=== PATIENT | female | born 1950 | race Caucasian/White ===

== ENCOUNTER 2022-03-11 18:05 | Emergency (ER) | payer MEDICARE, BC, SELFPAY ==
[2022-03-11 18:12] VITALS: BP 150/92; PULSE 66; RESP 20; TEMP 37.6; O2SAT 99; BMI 25.0
--- NOTE | 2022-03-11 19:30 | CRLHL7_ITS ---
For Patients: As a result of the Century Cures Act, medical imaging exams and procedure reports are released immediately into your electronic medical record. You may view this report before your referring provider. If you have questions, please contact your health care provider. INDICATION: Headache. TECHNIQUE: CT head without contrast. COMPARISON: None. FINDINGS: CSF spaces: Within normal limits for age. Brain parenchyma and extra-axial spaces: The elizondo-white differentiation is normal. No sign of mass, hemorrhage, or midline shift. No extra-axial fluid collection. Skull base and calvarium: The visualized paranasal sinuses and mastoid air cells demonstrate no acute or significant findings. Bilateral cataract surgery. The visualized orbits are grossly unremarkable. No skull fractures. IMPRESSION: No acute intracranial abnormality. Please note that all CT scans at this facility use dose modulation, iterative reconstruction, and/or weight-based dosing when appropriate to reduce radiation dose to as low as reasonably achievable. Dictated by Lewis Ross MD @ 03/11/2022 7:59:05 PM (Electronically Signed)
[2022-03-11] MEDS: ONDANSETRON 2 MG/ML inj 4 MG IVP (19:41)
[2022-03-11] MEDS: ACETAMINOPHEN 500 MG TABLET 1000 MG PO (19:42)
[2022-03-11] MEDS: diphenhydrAMINE 50 MG/ML inj 25 MG IVP (19:43)
[2022-03-11 19:53] LABS: Basophils Absolute Auto 0.02 K/uL (0.00-0.30); Basophils Percent Auto 0.3 % (0.0-3.0); Eosinophils Absolute Auto 0.16 K/uL (0.00-0.50); Eosinophils Percent Auto 2.1 % (0.0-7.0); Hematocrit 40.8 % (33.0-51.0); Hemoglobin* 13.6 gm/dL (12.0-16.0); Immature Granulocytes Abs Auto 0.01 K/uL (0.00-0.30); Immature Granulocytes Pct Auto 0.1 %; Lymphocytes Absolute Auto 1.51 K/uL (0.90-2.90); Mean Corpuscular HGB Conc 33 gm/dL (32-36); Mean Corpuscular Hemoglobin 32 pg (26-34); Mean Corpuscular Volume 96 fL (80-100); Monocytes Percent Auto 6.7 % (0.0-11.0); Neutrophils Absolute Auto 5.35 K/uL (1.7-7.0); Neutrophils Percent Auto 70.8 % (42.0-72.0); Platelet Count* 228 K/uL (140-440); RDW Coefficient of Variation % 11.8 % (11.5-15.5); Red Blood Count 4.24 m/uL (4.00-5.20); White Blood Count* 7.56 K/uL (4.50-11.00)
[2022-03-11] MEDS: 0.9 % SODIUM CHLORIDE 500 ML 500 ML IV (19:57)
[2022-03-11 20:00] LABS: Slide Review Reflex No
--- NOTE | 2022-03-11 20:05 | ED.GENADULT ---
HPI - General Adult General Date Seen: 03/11/22 Chief complaint: Headache/Migraine Stated complaint: Spiking blood pressure Time Seen by Provider: 03/11/22 18:30 Source: patient History of Present Illness HPI narrative: Patient is a 71-year-old woman who comes in because of concerns about her blood pressure spiking today. She says she woke up this morning and developed a moderate frontal headache, immediately suspected that her blood pressure must be elevated, checked it and it was 180/110. She says that she is supposed check her blood pressure on a regular basis but does not, so she does not actually know what it usually runs in the mornings, but knows that her symptoms today are due to her elevated blood pressure. She says that she had an ortho appointment for a cyst on her finger, which she went to early because she did not want to miss it because of her blood pressure. When she went to the appointment her blood pressure was somewhat elevated as well although not as high as it has at home. She has continued to have a headache throughout the day associated with nausea but no vomiting. Blood pressures have been variable. She has had some tingling in her hands but she attributes that to her carpal tunnel. She has not had any focal neurologic deficits. She has some pain in her left lateral neck but says that this is more chronic. She became concerned about possible stroke or heart attack related to her high blood pressure which is what led to her coming in. She says she knows that her blood pressure is supposed to be under 130/80. She does take 2 medications for her blood pressure which she believes is typically well controlled although again she does not check her blood pressure at home. She further tells me that her dad was cared for here a number of years ago, apparently he had SIADH and she said he was sent home with seizures, so she is not happy about being here, but she did not want to drive somewhere farther away. She does not smoke. Drinks a couple of glasses of wine a day. Drove herself here as her is home taking care of their grandkids. Related Data Home Medications Medication Instructions Recorded Confirmed fluticasone propionate 50 2 spray intranasal QDAY 10/18/21 10/18/21 mcg/actuation nasal spray,suspension hydrochlorothiazide 25 mg tablet 25 mg PO QDAY 10/18/21 10/18/21 levothyroxine 50 mcg capsule 50 mcg PO QDAY 10/18/21 10/18/21 sertraline 50 mg tablet 50 mg PO QDAY 10/18/21 10/18/21 atorvastatin 10 mg tablet 10 mg PO .Bedtime 10/19/21 10/19/21 calcium citrate 250 mg PO QDAY 10/19/21 10/19/21 cholecalciferol (vitamin D3) 25 25 mcg PO QDAY 10/19/21 10/19/21 mcg (1,000 unit) capsule (Vitamin D3) lisinopril 5 mg tablet 5 mg PO DAILY 10/19/21 10/19/21 metoprolol tartrate 25 mg tablet 25 mg PO QDAY 10/19/21 10/19/21 Allergies Allergy/AdvReac Type Severity Reaction Status Date / Time doxycycline AdvReac Heartburn Verified 10/18/21 09:47 Review of Systems Status of ROS: Reports: 10 or more systems reviewed and unremarkable except as noted in History and below [facility] Medical History De Quervain's syndrome (tenosynovitis) Depression Surgical History De Quervain's tenosynovitis, left (02/17/20) Family History Sister Cancer Other Coronary artery disease Dementia Social History Smoking Status: Former smoker What tobacco products do you use: cigarettes Smoking quit date/years: >15 years ago Do you use any of these nicotine containing products: None Second hand tobacco smoke exposure: No How often do you have a drink containing alcohol: 4 or more times a week How many standard drinks containing alcohol do you have on a typical day: 1 or 2 How often do you have six or more drinks on one occasion: Never AUDIT-C Alcohol total score: 4 Non-prescribed substance use: denies use service: No Exam Narrative: Exam Narrative: Vital signs as noted above. In general, an alert, well-appearing patient. Head: Normocephalic, atraumatic. Eyes: Pupils are equal reactive. Extraocular movements are full. Conjunctivae are normal. No nystagmus. ENT: Mucous membranes are moist. Throat is normal. Neck: Supple without lymphadenopathy. No bruits. Heart: Regular rate and rhythm. No murmur or rub. Lungs: Clear bilaterally. No increased work of breathing, crackles or wheezes. Abdomen: Soft and nontender. No organomegaly. Extremities: Well perfused. No edema. No calf tenderness. Pulses intact. Neurologic: Patient is alert and oriented to person and place. Speech is fluent. Face is symmetric. Moves all extremities equally. Cerebellar function intact by finger-nose testing. Affect: Normal. Skin: Warm and dry. Well perfused. Const: Vital Signs, click to edit/add: Vital Signs - 24 hr 03/11/22 18:12 Temperature 99.6 F Pulse Rate [Pulse Oximeter] 66 Respiratory Rate 20 Blood Pressure [Le ft Upper Arm] 150/92 H Pulse Oximetry 99 Oxygen Delivery Me thod Room Air Documenting provider has reviewed patient's vital signs: yes Course Course Hospital Course: Will place an IV. She tries to stay way from ibuprofen and related products, so I do not think Toradol is a good option but she would like to take something for her headache. She drove here and would like to be able to drive home ideally. Therefore, I am going to try giving her some Tylenol, along with Benadryl and Zofran, will see if we can get her head feeling a little bit better. What I have suggested is that we evaluate her for her headache, and make sure that we do not see any acute problems they are in terms of intracranial hemorrhage or stroke etcetera. I do not think this is related to intracranial infection, she does not describe any meningeal signs or fever. Her neurologic exam is normal, she is mentating well, and looks comfortable. I am less concerned about acutely managing her blood pressure tonight, and I have tried to explain my rationale for this to her. She does not have any confusion or focal findings, I do not think this represents PRESS or encephalopathy. She is not describing a thunderclap type headache and I do not think she will need additional evaluation for subarachnoid hemorrhage. She does have a history of migraine headache, and while this is a diagnosis of exclusion for her at this age, it is possible that this represents migraine. Headache is not temporal, but CRP and sed rate are pending. She is feeling improved after medications, particularly in terms of the nausea which is completely gone. Headache she says is partially gone but she still having some ?zaps of pain she says. Her is now here with her, and she would like to try something stronger for pain and then have him drive her home. Head CT by my review is negative, final radiology report is likewise normal. CRP has returned normal, I suspect sed rate likely normal as well as that is still processing. Her blood pressure here has been somewhat variable ranging from 140s and 150s to 180s systolic. I have discussed with her that my preference would be to just have her check her blood pressures over the next few days and see where they are running on a normal day, and then have her talk with Dr. Tobin about possible medication changes. It may be that she needs to have an adjustment in her medication, but I am not sure that I want to base these changes just on today. Patient is feeling considerably better after 4 mg of morphine. Headache is entirely resolved and she would like to go home. She is comfortable with plan as outlined above. If at any point headache returns, is severe, or associated with new symptoms such as confusion, visual changes, focal neurologic deficits, etcetera, return to the emergency department immediately for evaluation. Vital Signs Vital signs: Initial Vital Signs Temperature 99.6 F 03/11/22 18:12 Temperature Source Temporal Artery Scan 03/11/22 18:12 Pulse Rate 66 03/11/22 18:12 Pulse Rhythm 03/11/22 18:12 Respiratory Rate 20 03/11/22 18:12 Blood Pressure 150/92 H 03/11/22 18:12 Blood Pressure Mean 111 03/11/22 18:12 Blood Pressure Position Supine 03/11/22 18:12 Pulse Oximetry 99 03/11/22 18:12 Oxygen Delivery Method 03/11/22 18:12 Vital Signs Temperature 99.6 F 03/11/22 18:12 Pulse Rate 66 03/11/22 18:12 Respiratory Rate 20 03/11/22 18:12 Blood Pressure 150/92 H 03/11/22 18:12 Pulse Oximetry 99 03/11/22 18:12 Oxygen Delivery Method 03/11/22 18:12 Temperature 99.6 F 03/11/22 18:12 Pulse Rate 66 03/11/22 18:12 Respiratory Rate 20 03/11/22 18:12 Blood Pressure 150/92 H 03/11/22 18:12 Pulse Oximetry 99 03/11/22 18:12 Oxygen Delivery Method 03/11/22 18:12 Medical Decision Making Lab Data Labs: Lab Results 03/11/22 03/11/22 03/11/22 Range/Units 19:47 19:47 19:47 WBC 7.56 (4.50-11.00) K/uL RBC 4.24 (4.00-5.20) m/uL Hgb 13.6 (12.0-16.0) gm/dL Hct 40.8 (33.0-51.0) % MCV 96 (80-100) fL MCH 32 (26-34) pg MCHC 33 (32-36) gm/dL RDW Coeff of Keke 11.8 (11.5-15.5) % Plt Count 228 (140-440) K/uL Neut % (Auto) 70.8 (42.0-72.0) % Lymph % (Auto) 20.0 (20-44) % [place] % (Auto) 6.7 (0.0-11.0) % Eos % (Auto) 2.1 (0.0-7.0) % Baso % (Auto) 0.3 (0.0-3.0) % Neut # (Auto) 5.35 (1.7-7.0) K/uL Lymph # (Auto) 1.51 (0.90-2.90) K/uL [place] # (Auto) 0.50 (0.00-0.90) K/UL Eos # (Auto) 0.16 (0.00-0.50) K/uL Baso # (Auto) 0.02 (0.00-0.30) K/uL ESR 19 (2-20) mm/hr Sodium 137 (135-149) mmol/L Potassium 3.6 (3.6-5.1) mmol/L Chloride 100 (96-114) mmol/L Carbon Dioxide 30 (20-32) mmol/L BUN 19 (7-30) mg/dL Creatinine 0.6 (0.5-1.5) mg/dL Estimated Creat Clear 47.60 Estimated GFR 95 ml/min Glucose 109 (60-115) mg/dL Calcium 9.1 (8.4-10.6) mg/dL C-Reactive Protein 0.8 (0.5-1.0) mg/dL 03/11/22 Range/Units 19:47 WBC (4.50-11.00) K/uL RBC (4.00-5.20) m/uL Hgb (12.0-16.0) gm/dL Hct (33.0-51.0) % MCV (80-100) fL MCH (26-34) pg MCHC (32-36) gm/dL RDW Coeff of Keke (11.5-15.5) % Plt Count (140-440) K/uL Neut % (Auto) (42.0-72.0) % Lymph % (Auto) (20-44) % [place] % (Auto) (0.0-11.0) % Eos % (Auto) (0.0-7.0) % Baso % (Auto) (0.0-3.0) % Neut # (Auto) (1.7-7.0) K/uL Lymph # (Auto) (0.90-2.90) K/uL [place] # (Auto) (0.00-0.90) K/UL Eos # (Auto) (0.00-0.50) K/uL Baso # (Auto) (0.00-0.30) K/uL ESR (2-20) mm/hr Sodium (135-149) mmol/L Potassium (3.6-5.1) mmol/L Chloride (96-114) mmol/L Carbon Dioxide (20-32) mmol/L BUN (7-30) mg/dL Creatinine (0.5-1.5) mg/dL Estimated Creat Clear Estimated GFR ml/min Glucose (60-115) mg/dL Calcium (8.4-10.6) mg/dL C-Reactive Protein Cancelled (0.5-1.0) mg/dL Discharge Plan Discharge Clinical Impression: Headache, Elevated blood pressure reading with diagnosis of hypertension Patient Disposition: Home, Self-Care Condition: Improved Instructions: Acute Headache (ED) Additional Instructions: Check blood pressure a couple times a day for the next few days, discuss readings with Dr. Tobin if elevated. If severe headache or other new symptoms, confusion, focal weakness, numbness, changes in speech, vision, etcetera, return immediately to the emergency department. Otherwise, continue current medications and follow up as needed. Prescriptions: No Action fluticasone propionate 50 mcg/actuation spray,suspension 2 spray intranasal QDAY Rx Instructions: administer into each nostril levothyroxine 50 mcg capsule 50 mcg PO QDAY hydrochlorothiazide 25 mg tablet 25 mg PO QDAY sertraline 50 mg tablet 50 mg PO QDAY atorvastatin 10 mg tablet 10 mg PO .Bedtime lisinopril 5 mg tablet 5 mg PO DAILY metoprolol tartrate 25 mg tablet 25 mg PO QDAY cholecalciferol (vitamin D3) [Vitamin D3] 25 mcg (1,000 unit) capsule 25 mcg PO QDAY calcium citrate 250 mg calcium tablet 250 mg PO QDAY Follow Up/Referrals: Mindy Tobin DO [Primary Care Provider] - Stand Alone Forms: [facility] Info Instructions
[2022-03-11 20:09] LABS: Chloride* 100 mmol/L (96-114)
[2022-03-11 20:10] LABS: Potassium* 3.6 mmol/L (3.6-5.1); Sodium* 137 mmol/L (135-149)
[2022-03-11 20:12] LABS: Creatinine* 0.6 mg/dL (0.5-1.5); Estimated Glomerular Filt Rate 95 ml/min
[2022-03-11 20:13] LABS: Blood Urea Nitrogen* 19 mg/dL (7-30); Carbon Dioxide* 30 mmol/L (20-32); Glucose* 109 mg/dL (60-115)
[2022-03-11 20:14] LABS: Calcium* 9.1 mg/dL (8.4-10.6)
[2022-03-11 20:16] LABS: C Reactive Protein* 0.8 mg/dL (0.5-1.0)
[2022-03-11 20:45] LABS: Erythrocyte SedimentationRate* 19 mm/hr (2-20)
[2022-03-11] MEDS: MORPHINE 4 MG/ML INJ IVP (20:49)
== END 2022-03-11 21:30 | disposition home or self-care (01) ==
PROVIDERS: Emergency Provider Emergency Medicine; PCP Family Medicine
DX: R51.9 Headache, unspecified (principal); R03.0 Elevated blood-pressure reading, without diagnosis of hypertension
CPT/HCPCS: 36415; 70450; 80048; 85025; 85651; 86140; 96374; 96375; 99284; A9270; J1200; J2270; J2405; J7120

== ENCOUNTER 2025-01-29 23:23 | Emergency (ER) | payer MEDICARE, BC, SELFPAY ==
--- OUTSIDE RECORDS SUMMARY | 2025-01-29 23:27 | XMS_ITS | Clinical Summary ---
Author Organization [facility] Address [address] [place] [address] Care Team Providers Care Clerical And Office Support Workers Name Role Phone Mindy Tobin DO Primary Care Provider [phone] Allergies Active Allergy Reactions Criticality Noted Date Comments Doxycycline GI Upset 08/28/2019 Severe heartburn Medications calcium carbonate (CALTRATE) 600 mg calcium (1,500 mg) tablet Take 1 Tablet (600 mg) by mouth one time for 1 dose. 1 Tablet 10/08/19 22 Active cholecalciferol (Vitamin D) 1,000 unit capsule Take 1 Capsule (1,000 units) by mouth once daily. 0 10/08/19 22 Active brimonidine 0.33 % topical gelIndications:Ro sacea Apply peasized amount to affect area face 30 g 3 08/11/19 23 Active oxymetazoline 1 % creaIndications:R osacea Apply topically to affected area(s). 30 g 3 07/06/19 25 Active azelaic acid 15 % gelIndications:Ro sacea Apply a thin layer to the affected area(s) of the face twice daily, in the morning and evening 50 g 3 07/18/19 25 Active hydrocortisone 2.5 % ointment Apply topically to affected area(s). 12/19/19 25 Active atorvastatin (LIPITOR) 20 mg tabletIndications :Other hyperlipidemia Take 1 Tablet (20 mg) by mouth at bedtime. 90 Tablet 3 01/05/20 25 Active levothyroxine (SYNTHROID) 50 mcg tabletIndications :Hypothyroidism, unspecified type TAKE 1 TABLET(50 MCG) BY MOUTH BEFORE BREAKFAST 90 Tablet 2 01/16/20 25 Active lisinopriL (PRINIVIL; ZESTRIL) 40 mg tabletIndications :Hypertension, unspecified type Take 1 Tablet (40 mg) by mouth once daily. 90 Tablet 3 01/24/20 25 Active metoprolol succinate (TOPROL XL) 50 mg sustained-release tabletIndications :HTN (hypertension) Take 1 Tablet (50 mg) by mouth once daily. 90 Tablet 3 01/24/20 25 Active hydroCHLOROthiazi de 25 mg tabletIndications :Hypertension, unspecified type Take 1 Tablet (25 mg) by mouth once daily. 90 Tablet 3 01/24/20 25 Active sertraline (ZOLOFT) 50 mg tabletIndications :Anxiety Take 0.5 Tablets (25 mg) by mouth once daily. 1/2 tablet once a day 45 Tablet 3 01/24/20 25 Active atorvastatin (LIPITOR) 20 mg tabletIndications :Other hyperlipidemia Take 1 Tablet (20 mg) by mouth at bedtime. 90 Tablet 3 02/21/20 24 2024 Discontinued(* Availability/F ormulary change/Cost of medication) metoprolol succinate (TOPROL XL) 50 mg sustained-release tabletIndications :HTN (hypertension) Take 1 Tablet (50 mg) by mouth once daily. 90 Tablet 3 02/21/20 24 2024 Discontinued(R eorder (E-cancel not sent)) sertraline (ZOLOFT) 50 mg tabletIndications :Anxiety Take 0.5 Tablets (25 mg) by mouth once daily. 1/2 tablet once a day 45 Tablet 3 02/21/20 24 2024 Discontinued(R eorder (E-cancel not sent)) brimonidine 0.33 % glwpIndications:R osacea Apply peasized amount to affected area of face 30 g 3 06/12/19 25 2024 Discontinued(* Patient states no longer taking) hydroCHLOROthiazi de 25 mg tabletIndications :Hypertension, unspecified type Take 1 Tablet (25 mg) by mouth once daily. 90 Tablet 1 07/20/19 25 2024 Discontinued levothyroxine 50 mcg tabletIndications :Hypothyroidism, unspecified type Take 1 Tablet (50 mcg) by mouth before breakfast. 90 Tablet 1 07/26/19 25 2024 Discontinued cephalexin 500 mg capsule Take 1 Capsule by mouth two times daily. 12/13/19 25 2024 Discontinued(* Med complete/Regim en complete/Level of care change) losartan (COZAAR) 100 mg tabletIndications :HTN (hypertension) Take 1 Tablet (100 mg) by mouth once daily. 60 Tablet 12/24/19 25 2024 Discontinued(* Medication adjustment) hydroCHLOROthiazi de 25 mg tabletIndications :Hypertension, unspecified type TAKE 1 TABLET(25 MG) BY MOUTH DAILY 30 Tablet 01/16/20 25 2024 Discontinued(R eorder (E-cancel not sent)) Active Problems Problem Noted Date Diagnosed Date Digital mucinous cyst of index finger of left thomas nd 04/25/2024 S/P carpal tunnel release 07/08/2022 S/P excision of ganglion cyst 07/08/2022 Right carpal tunnel syndrome 05/20/2022 Digital Mucoid cyst of joint 05/20/2022 Leg pain, right 05/01/2012 Routine general medical exam ination at a health care facility 11/03/2010 Overview (06/03/2014): dexa normal 2008, repeat in 10-12 years Myriam Herzog M.D. 06/03/2014 2:33 PM Postmenopausal bleeding 11/02/2009 Screen for colon cancer 11/27/2008 Overview (11/27/2008): Colonoscopy 11/2008 normal repeat in 10 years Mixed hyperlipidemia 10/27/2008 Unspecified hypothyroidism 10/26/2007 perioral dermatitis 10/24/2006 Unspecified essential hypertension 06/13/2006 Anxiety state, unspecified 06/13/2006 Encounters Date Type Department Care Team Description 01/23/2025 1:55 PM VALVE MECHANIC Office Visit [facility] [address] [place] [address] Mindy Tobin DO Medicare ANNUAL (subsequent) Visit (74 year old medicare); Blood Pressure 01/23/2025 Travel 01/18/2025 Travel 01/15/2025 Refill [facility] [address] [place] [address] [address] Mindy Tobin DO Refill Request (Hydrochlorothiazid e) 01/14/2025 Refill [facility] [address] [place] [address] Mindy Tobin DO Refill Request (Hydrochlorothiazid e, Levothyroxine) 01/03/2025 Refill [facility] [address] [place] [address] Mindy Tobin DO Refill Request (Atorvastatin) 12/23/2024 11:15 AM CDT Office Visit [facility] [address] [place] [address] Mindy Tobin DO Derm Problem (Rosacea-frequent flares-dermatitis on nose); Cramping (Abdominal cramping with gas 2 weeks-better); Medication Management (Atorvasatin-calciu m and vitamin D) 12/23/2024 Refill [facility] [address] [place] [address] Mindy Tobin DO Refill Request (Losartan) 12/23/2024 Travel 12/18/2024 Travel 11/29/2024 Orders Only [facility] Scanner 1 scan: (1-Ord) TAREEN DERMATOLOGY, NASAL DORSUM. LEFT NASAL ALA, SHAVE BX, 11/29/2024 11/06/2024 11:00 AM CDT Ancillary Procedure [facility] [address] [place] [address] 11/05/2024 Travel from Last 3 Months Immunizations Immunization Administration Dates Next Due COVID-19 vaccine (Moderna 100mcg/0.5mL) PF, MDV 06/03/2021 Hepatitis B (Adult) 11/02/1994,05/24/1994,1994 Influenza Virus, Unspecified 12/12/2017 Influenza, High-dose Inactivated 024,12/12/2017,2015,2014 Influenza, High-dose Quadriv alent Inactivated 12/31/2021,12/29/2020 Influenza, IIV3 (Age >=3 years) 01/25/2014 Influenza, Inactivated AIIV4 (Age 65+ Years) Preserv Free 11/26/2019 Influenza, Inactivated IIV3 (Age 65+ Years) Preserv Free 05/13/2019,01/23/2017 Pneumococcal Conj 20-valent (Prevnar 20) 11/21/2022 Pneumococcal Poly,23-Valent (Pneumovax) 01/23/2017 Pneumococcal conj 13-Valent (Prevnar 13) 07/10/2015 Td (Age >=7 Years) 08/09/2004 Tdap 01/25/2014,05/01/2012 Zoster (Shingrix-RZV, recombinant) 07/19/2018,,05/11/2018 Zoster (Zostavax-ZVL, live) 05/07/2012 Family History Medical History Relation Name Comments Heart Disease Father triple bypass Hypertension Father Arthritis Mother auto immune typ e diesase Heart Disease Paternal Aunt Cancer-colon Paternal Grandmother Heart Disease Paternal Uncle Hypertension Sister Anesthesia Malignant Hyperthermia No Family History Anesthesia Problem No Family History Cancer-breast No Family History Cancer-ovarian No Family History Relation Name Status Comments Father Alive Mother Alive Paternal Aunt Paternal Grandmother Paternal Uncle Sister Social History Tobacco Use Types Packs/Day Years Used Date Smoking Tobacco: Former Cigarettes Q uit: 03/06/1977 Passive Smoke Exposure: Never Smokeless Tobacco: Never Tobacco Cessation:Counseling Given: Not Answered Alcohol Use Standard Drinks/Week Comments Yes 7 (1 standard drink = 0.6 oz pur e alcohol) 1 glass of wine a day PHQ-2 Answer Date Recorded PHQ-2 TOTAL SCORE 0 01/23/2025 Social Connections Answer Date Recorded Do you often feel lonely or isolated from those around you? 0 01/23/2025 Alcohol Use Answer Date Recorded How often do you have a drink containing alcohol ? 4 06/13/2022 How many drinks containing a lcohol do you have on a typical day when you are drinking? 0 06/13/2022 How often do you have five or more drinks on one occasion? 0 06/13/2022 Financial Resource Strain Answer Date R ecorded Difficulty of Paying Living Expenses 3 01/23/2025 Difficulty of Paying Living Expenses Not on file 01/23/2025 Food Insecurity Answer Date Recorded Do you worry your food will run out before you are able to buy more? 1 01/23/2025 Transportation Needs Answer Date Record ed Does lack of transportation keep you from medica l appointments? 1 01/23/2025 Does lack of transportation keep you from work, meetings or getting things that you need? 1 01/23/2025 Housing Stability Answer Date Recorded What is your housing situation today? 1 01/23/2025 Utilities Answer Date Recorded Do you have trouble paying f or utilities (for example, heat, electricity, water, phone)? 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 file Not on file Not on file Obstetrics History Para Term AB IAB SAB Ectopic Multiple Livin g Live Births 2 2 2 0 0 0 0 0 0 2 2 Date Outcome GA Total Labor Labor/2nd/3rd Weight Sex Type Anes PTL Clarissa A1 A5 Name Clin Term Vag Living Term Vag Living Last Filed Vital Signs Vital Sign Reading Time Taken Comments Blood Pressure 124/79 01/23/2025 2:03 PM VALVE MECHANIC Pulse 52 01/23/2025 2:03 PM VALVE MECHANIC Temperature 34.7 C (94.5 F) 01/04/2023 10:52 AM CDT Respiratory Rate 16 06/22/2022 7:54 AM CDT Oxygen Saturation 100% 01/23/2025 2:03 PM VALVE MECHANIC Inhaled Oxygen Concentration - - Weight 66.2 kg (146 lb) 01/23/2025 2:03 PM VALVE MECHANIC Height 165.1 cm (5' 5) 01/23/2025 2:03 PM VALVE MECHANIC Body Mass Index 24.3 01/23/2025 2:03 PM VALVE MECHANIC Plan of Treatment Health Maintenance Due Date Last Done Comments Hepatitis C screening for ag e 18-12/06/1968 Tetanus booster 01/26/2024 01/25/2014, 04/07, 08/09/2004 COVID-19 vaccine series ( season) 2024 12/25/2023, 12/03/2021, 06/03/2021, Additional history exists Influenza Vaccine (#1) 2024 , 11/26/2019, 05/13/2019, Additional history exists RSV vaccine for adults or (1 - 1-dose 75+ series) 2024 BMI (ht and wt on same day) for age 18+ 01/23/2026 01/23/2025, 12/23/2024, 09/27/2023, Additional history exists Depression screening for age 12+ 01/23/2026 01/23/2025, 12/23/2024, 02/21/2024, Additional history exists Medicare Wellness for age 65+ 01/24/2026, 09/27/2023, 08/10/2022, Additional history exists Lipids for age 45-75 12/23/2029 12/23/2024, 08/24/2023, 08/03/2022, Additional history exists Colonoscopy through age 75 04/24/203004/24, 04/24/2020, 04/24/2020, Additional history exists Hepatitis B series for 19+ Completed 11/02, 05/24/1994, 04/25/1994 Zoster (shingles) series for age 50+ Completed 07/19/2018, 05/11/2018, 05/11/2018, Additional history exists DEXA/DXA scan for age 65+ Completed 2022, 07/09/2015, 10/28/2008 Pneumococcal series for age 50+ Completed 11/21/2022, 01/23/2017, 07/10/2015 Procedures Procedure Name Priority Date/Time Associated Diagnosis Comments TSH Routine 12/23/2024 12:21 PM CDT Hypothyroidism, unspecified type VITAMIN D 25 (DEFICIENCY) Routine 12/23/2024 12:21 PM CDT Vitamin D deficiency BASIC METABOLIC PANEL Routine 12/23/2024 12:21 PM CDT Hypertension, unspecified type LIPID PANEL W REFLEX MEASURED LDL Routine 12/23/2024 12:21 PM CDT Hypertension, unspecified type SCAN-OPERATIVE/PROC EDURE REPORT 11/29/2024 12:00 AM CDT XR MAMMO BILAT SCREENING Routine 11/06/2024 11:10 AM CDT Visit for screening mammogram XR DXA BONE DENSITY 2 SITES AXIAL Routine 08/11/2022 10:57 AM CDT Unspecified menopausal and perimenopausal disorder COLONOSCOPY SCREENING Routine 04/24/2020 7:22 AM VALVE MECHANIC Screen for colon cancer from Last 3 Months or Most Recently Relevant to Health Maintenance Results * LIPID PANEL W REFLEX MEASURED LDL (12/23/2024 12:21 PM CDT) CHOLESTEROL, TOTAL 167 <200 mg/dL 12/24/2024 3:41 AM CDT [facility] TRIGLYCERIDES 135 <150 mg/dL 12/24/2024 3:41 AM CDT [facility] HDL CHOLESTEROL 55 > OR = 50 mg/dL 12/24/2024 3:41 AM CDT [facility] NON HDL CHOLESTEROL 112 <130 mg/dL (calc) 12/24/2024 3:41 AM [facility] Comment: For patients with diabetes plus 1 major ASCVD risk factor, treating to a non-HDL-C goal of <100 mg/dL (LDL-C of <70 mg/dL) is considered a therapeutic option. CHOL/HDLC RATIO 3.0 <5.0 (calc) 12/24/2024 3:41 AM CDT [facility] LDL-CHOLESTEROL 89 mg/dL (calc) 12/24/2024 3:41 AM [employer] [facility] Comment: Reference range: <100 Desirable range <100 mg/dL for primary prevention; <70 mg/dL for patients with CHD or diabetic patients with > or = 2 CHD risk factors. LDL-C is now calculated using the Flaquita calculation, which is a validated novel method providing better accuracy than the Friedewald equation in the estimation of LDL-C. Vinicio PENN et al. RITA. 2013;310(19): 2073-9970 (http://education.Sailogy/faq/MZU061) Blood BLOOD SPECIMEN / Unknown [facility] / Unknown 12/23/2024 12:21 PM CDT 12/23/2024 12:22 PM CDT Mindy Tobin DO CHEMISTRY Final Resu lt Performing Organization Address [facility] Co de Phone Number [facility] [address] [place] [phone], [place] [phone] * VITAMIN D 25 (DEFICIENCY) (12/23/2024 12:21 PM CDT) VITAMIN D,25-OH,TOTAL,IA 56 30 - 100 ng/mL 12/24/2024 4:11 AM CDT [facility] Comment: Vitamin D Status 25-OH Vitamin D: Deficiency: <20 ng/mL Insufficiency: 20 - 29 ng/mL Optimal: > or = 30 ng/mL For 25-OH Vitamin D testing on patients on D2-supplementation and patients for whom quantitation of D2 and D3 fractions is required, the QuestAssureD(TM) 25-OH VIT D, (D2,D3), LC/MS/MS is recommended: order code [id number] (patients >2yrs). See Note 1 Note 1 For additional information, please refer to http://education.Quincee.Dataupia/faq/DVG374 (This link is being provided for informational/ educational purposes only.) Blood BLOOD SPECIMEN / Unknown [facility] / Unknown 12/23/2024 12:21 PM CDT 12/23/2024 12:22 PM CDT Mindy Tobin DO SEND OUTS Final Resu lt Performing Organization Address [facility]/ZIP Co de Phone Number [facility] [address] [place] [phone], [place] [phone] * TSH (12/23/2024 12:21 PM CDT) TSH 0.59 0.40 - 4.50 mIU/L 12/24/2024 4:11 AM CDT [facility] Blood BLOOD SPECIMEN / Unknown [facility] / Unknown 12/23/2024 12:21 PM CDT 12/23/2024 12:22 PM CDT Mindy Tobin DO CHEMISTRY Final Resu lt [facility] [address] [place] [address], [place] [phone] * BASIC METABOLIC PANEL (12/23/2024 12:21 PM CDT) SODIUM 138 135 - 146 mmol/L 12/24/2024 3:41 AM CDT [facility] POTASSIUM 4.0 3.5 - 5.3 mmol/L 12/24/2024 3:41 AM CDT [facility] CARBON DIOXIDE 30 20 - 32 mmol/L 12/24/2024 3:41 AM CDT [facility] GLUCOSE 94 65 - 99 mg/dL 12/24/2024 3:41 AM CDT [facility] Comment: Fasting reference interval CALCIUM 10.2 8.6 - 10.4 mg/dL 12/24/2024 3:41 AM CDT [facility] CREATININE 0.67 0.60 - 1.00 mg/dL 12/24/2024 3:41 AM CDT [facility] BUN/CREATININE RATIO SEE NOTE: 6 - 22 (calc) 12/24/2024 3:41 AM CDT [facility] Comment: Not Reported: BUN and Creatinine are within reference range. EGFR 91 > OR = 60 mL/min/1. 73m2 12/24/2024 3:41 AM CDT [facility] UREA NITROGEN (BUN) 14 7 - 25 mg/dL 12/24/2024 3:41 AM CDT [facility] ELECTROLYTE BALANCE 9 7 - 17 mmol/L (calc) 12/24/2024 3:41 AM CDT [facility] CHLORIDE 99 98 - 110 mmol/L 12/24/2024 3:41 AM CDT [facility] Blood BLOOD SPECIMEN / Unknown [facility] / Unknown 12/23/2024 12:21 PM CDT 12/23/2024 12:22 PM CDT Mindy Tobin DO CHEMISTRY Final Resu lt [facility] [address] [place] [address], * SCAN-OPERATIVE/PROCEDURE REPORT (11/29/2024 12:00 AM CDT) us Scanner OTHER Final Result * XR MAMMO BILAT SCREENING (11/06/2024 11:10 AM CDT) Anatomical Region Laterality Modality BREASTS, Breast Left, Breast Right Bilateral Mammography Impressions 11/06/2024 3:39 PM CDT There is no radiographic evidence for malignancy. Recommend annual mammograms. MAMMOGRAM ASSESSMENT: ACR 1 Negative PATIENTS: You will also receive a letter with your examination results in an easy to read format. If you have questions about your results, please contact your referring provider. Narrative 11/06/2024 3:39 PM CDT For Patients: As a result of the Century Cures Act, medical imaging exams and procedure reports are released immediately into your electronic medical record. You may view this report before your referring provider. If you have questions, please contact your health care provider. XR MAMMO BILAT SCREENING [[id number]] CLINICAL HISTORY: This is an asymptomatic 73 y.o. patient. INDICATION FOR EXAM: Mammogram Screening. TECHNIQUE: CC and MLO views were obtained. This study was evaluated with the assistance of Computer-Aided Detection. COMPARISON FILM: Yes 08/24/23 [employer] [facility] 08/10/22 [employer] FINDINGS: There are scattered areas of fibroglandular density. There are no dominant masses, suspicious micro calcifications or areas of architectural distortion. Mindy Tobin DO MAMMO Final Resu lt * (ABNORMAL) XR DXA BONE DENSITY 2 SITES AXIAL (08/11/2022 10:57 AM CDT) Anatomical Region Laterality Modality Spine, HIPS, HIPL, HIPR Other Impressions 08/17/2022 4:12 PM CDT Osteopenia. RECOMMENDATIONS: The National Osteoporosis Foundation recommends pharmacologic treatment for patients with T-scores of -2.5 or less, patients with prior history of fragility fractures, or patients with 10-year probability of greater than 3% at hips or greater than 20% of suffering major osteoporotic fractures. Recommend continued optimization of calcium and vitamin D intake through dietary means and/or supplementation and regular exercise. Consider pharmacologic therapy for osteopenia with increased fracture risk. Follow-up bone density reading in 2 years if therapy initiated to assess therapeutic efficacy. Katy Chowdhury PA-C [facility] 08/17/2022 Narrative 08/17/2022 4:12 PM CDT For Patients: Results are automatically released to your [facility] (R[facility]) account once available, in compliance with federal regulations. This means that you may see your results before your provider has had a chance to review them. Please allow 2-3 business days for your provider to comment on the results. XR DXA Bone Mineral Density (BMD) EXAM LOCATION: [address] [address] PATIENT NAME: Xenia Ramírez DATE OF : 1950 EXAM DATE: 08/11/2022 REQUESTING PROVIDER: Mindy Toibn DO GENDER AT : female HEIGHT: 5' 5.12 (08/10/2022) WEIGHT: 154 lb (08/10/2022) MENOPAUSAL STATUS: Postmenopausal RACE/ETHNICITY: White RISK FACTORS: Family History of Osteoporosis, Height Loss (2 inches or more) and White Race CURRENT MEDICATION FOR BONE LOSS: NONE INDICATION: Post-Menopause and Follow-up of normal DXA COMPARISON DATE(S): 2016 DXA scans are compared to prior studies for a patient only when the two (or more) studies were performed on the same scanner. It is not possible to compare data generated on one scanner to data from another because there are not standards in DXA equipment. This applies even if the two scanners are made by the same county treasurer. PROCEDURE: Dual-energy x-ray absorptiometry performed with routine technique. Reporting is completed in the form of a T-score. The T-score represents the standard deviation from peak bone mass based on young healthy adult. A Z-score is used for diagnosis in premenopausal women, and for men under the age of 50. FINDINGS: RESULT LUMBAR SPINE L1 - L4 BMD: 1.251 g/cm2 T-Score: + 0.5 Z-Score: + 2.0 Change from prior in 2016: Increase 0.6%. RESULTS FEMUR Left femoral neck BMD: 0.913 g/cm2 T-Score: - 0.9 Z-Score: + 0.8 Change from prior in 2016: Decrease 3.3%. Right femoral neck BMD: 0.871 g/cm2 T-Score: - 1.2 Z-Score: + 0.5 Change from prior in 2016: Decrease 9.7%. Left hip BMD: 0.816 g/cm2 T-Score: - 1.5 Z-Score: + 0.0 Change from prior in 2016: Decrease 7.2%. Right hip BMD: 0.825 g/cm2 T-Score: - 1.4 Z-Score: + 0.0 Change from prior in 2016: Decrease 7.3%. WHO criteria: Normal: T-score at or above -1 SD Osteopenia: T-score between -1.1 and -2.4 SD Osteoporosis: T-score at or below -2.5 SD FRAX RISK CALCULATION (USED FOR OSTEOPENIA ONLY): 10-year probability of major osteoporotic fracture: 15.2%. 10-year probability of hip fracture: 4.4%. us Mindy Tobin DO DEXA Final Resu lt * COLONOSCOPY (04/24/2020 7:48 AM VALVE MECHANIC) 04/24/2020 7:48 AM VALVE MECHANIC Narrative Transcriptions Vinicio So MD - 04/24/2020 10:05 AM CST Patient Name: Xenia Ramírez Procedure Date: 04/24/2020 Gender: Female Date of : 1950 Admit Type: Outpatient Procedure: Colonoscopy Proceduralist: Vinicio So MD , Dana Le, RN(Nurse) Referring MD: Mindy Tobin Indications/Pre-Op Diagnosis: Last colonoscopy: November 2008 Medications: Fentanyl 100 micrograms IV, Midazolam 4 mgIV, The level of sedation administered wasmoderate Procedure Description: The patient had risks, benefits and alternatives explained to andgave informed consent. The patient had a stable cardiopulmonary status and judged an adequate candidate for conscious sedation. The Colon [id number] was passed through the anus and advancedto the cecum, identified by appendiceal orifice and ileocecal valve. The colonoscopy was performed without difficulty. The patient toleratedthe procedure well. The quality of the bowel preparation was good. The ileocecal valve, appendiceal orifice, and rectum were photographed. Complications: No immediate complications. Estimated Blood Loss & Specimen: Estimated blood loss: none. Specimen collected - None Findings: The perianal and digital rectal examinations were normal. The colon (entire examined portion) was mildly redundant. The exam was otherwise without abnormality on direct and retroflexion views. Impressions/Post-Op Diagnosis: - Redundant colon. - The examination was otherwise normal on direct and retroflexionviews. - No specimens collected. Recommendation: - Patient has a contact number available for emergencies. The signsand symptoms of potential delayed complications were discussed with the patient. Return to normal activities tomorrow. Written discharge instructions were provided to the patient. - Resume previous diet. - Continue present medications. - Repeat colonoscopy in 10 years for screening purposes withan adult scope. Moderate Sedation: Moderate (conscious) sedation was administered by the endoscopy nurse and supervised by the endoscopist. The following parameters were monitored: oxygen saturation, heart rate, respiratory rate, blood pressure, adequacy of pulmonary ventilation and reponse to care. Please refer to the patient's medical record flowsheets and nursing notes for moderate sedation details. Total physician intraservice time was 15 minutes. Vinicio So MD 04/24/2020 8:24:01 AM This report has been signed electronically. Note Initiated On: 04/24/2020 7:48 AM Procedure Code(s): --- Professional --- 98291, Colonoscopy, flexible; diagnostic, including collection of specimen(s) bybrushing or washing, when performed (separateprocedure) Diagnosis Code(s): --- Professional --- Q43.8, Other specified congenitalmalformations of intestine CPT copyright 2019 [employer]. All rights reserved. The codes documented in this report are preliminary and upon wharfmaster reviewmay be revised to meet current compliance requirements. Scope In: 8:02:35 AM Scope Withdrawal Time 0 hours 6 minutes 3 seconds Scope Out: 8:15:39 AM Vinicio So MD PROCEDURE ORD Edited Re sult - Final from Last 3 Months or Most Recently Relevant to Health Maintenance Insurance BLUE CROSS [employer] [place] BLUE MR PB ONLY MEDICARE PART A HB ONLY MEDICARE PART B HB ONLY BLUE CROSS [place] BLUE HB ONLY BLUE CROSS [place] BLUE MR PB ONLY Advance Directives Documents on File Type Date Recorded Patient Supervising Nurse Expl anation Healthcare Directive 10/07/2005 006 * Full Code (Latest Code Status on File) Date Activated Date Inactivated Comments 06/22/2022 7:41 AM 06/22/2022 1:54 PM Question Answer Comments Code Status Discussion: Reviewed Preferences Care Teams Clerical And Office Support Workers Relationship Specialty Start Date End Date Mindy Tobin DO [address] [facility] [address] PCP - General Family Practice 07/02/15
[2025-01-29 23:39] VITALS: BP 131/82; PULSE 72; RESP 16; TEMP 36.4; O2SAT 99; BMI 24.3
--- OUTSIDE RECORDS SUMMARY | 2025-01-30 01:16 | XMS_ITS | Clinical Summary ---
Author Organization [facility] Address [address] [place] [address] Care Team Providers Care Pedorthist Name Role Phone Mindy Tobin DO Primary Care Provider [phone] Allergies Active Allergy Reactions Criticality Noted Date [...] Department Care Team Description 01/23/2025 1:55 PM ACUTE CARE CLINICAL NURSE SPECIALIST Office Visit [facility] [address] [place] [address] Mindy Tobin DO Medicare ANNUAL (subsequent) Visit (74 year old medicare); Blood Pressure 01/23/2025 Travel 01/18/2025 Travel 01/15/2025 Refill [facility] [address] [place] [address] [address] Mindy Tobin DO Refill Request (Hydrochlorothiazid e) 01/14/2025 Refill [facility] [address] [place] [address] Mindy Tobin DO Refill Request (Hydrochlorothiazid e, Levothyroxine) 01/03/2025 Refill [facility] [address] [place] [address] Mindy Tobin DO Refill Request (Atorvastatin) 12/23/2024 11:15 AM CDT Office Visit [facility] [address] [place] [address] Mindy Tobin DO Derm Problem (Rosacea-frequent flares-dermatitis on nose); Cramping (Abdominal cramping with gas 2 weeks-better); Medication Management (Atorvasatin-calciu m and vitamin D) 12/23/2024 Refill [facility] [address] [place] [address] Mindy Tobin DO Refill Request (Losartan) 12/23/2024 Travel 12/18/2024 Travel 11/29/2024 Orders Only [facility] Scanner 1 scan: (1-Ord) TAREEN DERMATOLOGY, NASAL DORSUM. LEFT NASAL ALA, SHAVE BX, 11/29/2024 11/06/2024 11:00 AM CDT Ancillary Procedure [facility] [address] [place] [address] 11/05/2024 Travel from Last 3 Months Immunizations [...] Sex Assigned at Female 03/10/2020 5:18 PM ACUTE CARE CLINICAL NURSE SPECIALIST Legal Sex Female 6:32 AM ACUTE CARE CLINICAL NURSE SPECIALIST Gender Identity Female 03/10/2020 5:18 PM ACUTE CARE CLINICAL NURSE SPECIALIST Sexual Orientation Straight 03/10/2020 5: 18 PM ACUTE CARE CLINICAL NURSE SPECIALIST Occupation Industry Job Start Date Job End [...] Comments Blood Pressure 124/79 01/23/2025 2:03 PM ACUTE CARE CLINICAL NURSE SPECIALIST Pulse 52 01/23/2025 2:03 PM ACUTE CARE CLINICAL NURSE SPECIALIST Temperature 34.7 C (94.5 F) 01/04/2023 10:52 AM CDT Respiratory Rate 16 06/22/2022 7:54 AM CDT Oxygen Saturation 100% 01/23/2025 2:03 PM ACUTE CARE CLINICAL NURSE SPECIALIST Inhaled Oxygen Concentration - - Weight 66.2 kg (146 lb) 01/23/2025 2:03 PM ACUTE CARE CLINICAL NURSE SPECIALIST Height 165.1 cm (5' 5) 01/23/2025 2:03 PM ACUTE CARE CLINICAL NURSE SPECIALIST Body Mass Index 24.3 01/23/2025 2:03 PM ACUTE CARE CLINICAL NURSE SPECIALIST Plan of Treatment Health Maintenance Due Date [...] disorder COLONOSCOPY SCREENING Routine 04/24/2020 7:22 AM ACUTE CARE CLINICAL NURSE SPECIALIST Screen for colon cancer from Last 3 Months or Most Recently Relevant to Health Maintenance Results * LIPID PANEL W REFLEX MEASURED LDL (12/23/2024 12:21 PM CDT) CHOLESTEROL, TOTAL 167 <200 mg/dL 12/24/2024 3:41 AM CDT [facility] TRIGLYCERIDES 135 <150 mg/dL 12/24/2024 3:41 AM CDT [facility] HDL CHOLESTEROL 55 > OR = 50 mg/dL 12/24/2024 3:41 AM CDT [facility] NON HDL CHOLESTEROL 112 <130 mg/dL (calc) 12/24/2024 3:41 AM [facility] Comment: For patients with diabetes plus 1 major ASCVD risk factor, treating to a non-HDL-C goal of <100 mg/dL (LDL-C of <70 mg/dL) is considered a therapeutic option. CHOL/HDLC RATIO 3.0 <5.0 (calc) 12/24/2024 3:41 AM CDT [facility] LDL-CHOLESTEROL 89 mg/dL (calc) 12/24/2024 3:41 AM [facility] [employer] Comment: Reference range: <100 Desirable range <100 mg/dL for primary prevention; <70 mg/dL for patients with CHD or diabetic patients with > or = 2 CHD risk factors. LDL-C is now calculated using the Flaquita calculation, which is a validated novel method providing better accuracy than the Friedewald equation in the estimation of LDL-C. Vinicio PENN et al. RITA. 2013;310(19): 6169-0234 (http://education.[employer]/faq/QOG244) Blood BLOOD SPECIMEN / Unknown [facility] / Unknown 12/23/2024 12:21 PM CDT 12/23/2024 12:22 PM CDT Mindy Tobin DO CHEMISTRY Final Resu lt Performing Organization Address [facility] Co de Phone Number [facility] [address] [place] [id number], [place] [phone] * VITAMIN D 25 (DEFICIENCY) (12/23/2024 12:21 PM CDT) VITAMIN D,25-OH,TOTAL,IA 56 30 - 100 ng/mL 12/24/2024 4:11 AM CDT [facility] Comment: Vitamin D Status 25-OH Vitamin D: Deficiency: <20 ng/mL Insufficiency: 20 - 29 ng/mL Optimal: > or = 30 ng/mL For 25-OH Vitamin D testing on patients on D2-supplementation and patients for whom quantitation of D2 and D3 fractions is required, the QuestAssureD(TM) 25-OH VIT D, (D2,D3), LC/MS/MS is recommended: order code [id number] (patients >2yrs). See Note 1 Note 1 For additional information, please refer to http://education.IMGuest.N(i)²/faq/NRQ019 (This link is being provided for informational/ educational purposes only.) Blood BLOOD SPECIMEN / Unknown [facility] / Unknown 12/23/2024 12:21 PM CDT 12/23/2024 12:22 PM CDT Mindy Tobin DO SEND OUTS Final Resu lt Performing Organization Address [facility]/ZIP Co de Phone Number [facility] [address] [place] [phone], [place] [phone] * TSH (12/23/2024 12:21 PM CDT) TSH 0.59 0.40 - 4.50 mIU/L 12/24/2024 4:11 AM CDT [facility] Blood BLOOD SPECIMEN / Unknown [facility] / Unknown 12/23/2024 12:21 PM CDT 12/23/2024 12:22 PM CDT Mindy Tobin DO CHEMISTRY Final Resu lt [facility] [address] [place] [address], [place] [phone] * BASIC METABOLIC PANEL (12/23/2024 12:21 PM [...] DO CHEMISTRY Final Resu lt [facility] [address] [place] [address], * SCAN-OPERATIVE/PROCEDURE REPORT (11/29/2024 12:00 AM CDT) [...] health care provider. XR MAMMO BILAT SCREENING [[id number]] CLINICAL HISTORY: This is an asymptomatic 73 y.o. patient. INDICATION FOR EXAM: Mammogram Screening. TECHNIQUE: CC and MLO views were obtained. This study was evaluated with the assistance of Computer-Aided Detection. COMPARISON FILM: Yes 08/24/23 [facility] 08/10/22 [facility] FINDINGS: There are scattered areas of fibroglandular [...] to assess therapeutic efficacy. Katy Chowdhury PA-C [facility] 08/17/2022 Narrative 08/17/2022 4:12 PM CDT For Patients: Results are automatically released to your [facility] account once available, in compliance with federal regulations. This means that you may see your results before your provider has had a chance to review them. Please allow 2-3 business days for your provider to comment on the results. XR DXA Bone Mineral Density (BMD) EXAM LOCATION: [address] [address] PATIENT NAME: Xenia Ramírez DATE OF : 1950 EXAM DATE: 08/11/2022 REQUESTING PROVIDER: Mindy Tobin DO GENDER AT : female HEIGHT: 5' [...] two scanners are made by the same tag stringer. PROCEDURE: Dual-energy x-ray absorptiometry performed with routine [...] Resu lt * COLONOSCOPY (04/24/2020 7:48 AM ACUTE CARE CLINICAL NURSE SPECIALIST) 04/24/2020 7:48 AM ACUTE CARE CLINICAL NURSE SPECIALIST Narrative Transcriptions Vinicio So MD - 04/24/2020 [...] candidate for conscious sedation. The Colon [id number] was passed through the anus and advancedto [...] 7:48 AM Procedure Code(s): --- Professional --- 72211, Colonoscopy, flexible; diagnostic, including collection of specimen(s) bybrushing or washing, when performed (separateprocedure) Diagnosis Code(s): --- Professional --- Q43.8, Other specified congenitalmalformations of intestine CPT copyright 2019 [employer]. All rights reserved. The codes documented in this report are preliminary and upon assembler molded frames reviewmay be revised to meet current compliance requirements. 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
--- NOTE | 2025-01-30 04:44 | ED.GENADULT ---
HPI - General Adult General Chief complaint: Skin/Abscess/Foreign Body Stated complaint: rosacea flare/poss cellulitis Time Seen by Provider: 01/29/25 23:57 Source: patient Mode of arrival: ambulatory Limitations: no limitations History of Present Illness HPI narrative: Patient presents the ED in the late hours of a holiday for concerns that her rosacea is not improving and that she could be developing cellulitis. There is no fever. There is no swelling of the airway, no tongue swelling. No difficulty swallowing or breathing. Patient has a history of rosacea, typically follows with a senior linux administrator in [facility]. It sounds like she was started on some Keflex orally by a senior linux administrator in the [place] area, again I have none of these notes as they are all out of our system and patient does not get her primary care through us either. Patient was on this for a few days and was not noticing improvement, then scheduled appointment with her typical provider up in [facility]. Was transitioned on to doxycycline and all other topical agents were stopped. She was instructed to only use mupirocin, this was 6 days ago. Patient reports that things seem to worsen and she started noticing swelling, called her typical dermatology office. The nurse called her back and said that the provider recommended she switch to Keflex. Patient has been on this medication for a day and a half and has noticed a little swelling pocket underneath the eye and is concerned that this could be a sign of cellulitis. No difficulty with eye movement. I asked to see a progression of pictures and thankfully she does have this and shows me. Does clearly show that the swelling of the nose and rosacea on the cheeks left greater than right has been present from the beginning of this over the last few weeks. The swelling of the lower tear trough is new but the redness seems stable over the last few days. No systemic symptoms like fever, vomiting, respiratory distress or neurological change. Reports that her past medical history is notable for hypothyroidism, hypertension. Typical home medications are reviewed. Was like she is a nonsmoker. Medication list reviewed. Allergy to doxycycline which caused heartburn. ROS is notable for the facial symptoms only, otherwise denies times 12 systems. Related Data Home Medications ?Medication ?Instructions ?Recorded ?Confirmed fluticasone propionate 50 2 spray intranasal QDAY 10/18/21 10/18/21 mcg/actuation nasal spray,suspension hydrochlorothiazide 25 mg tablet 25 mg PO QDAY 10/18/21 10/18/21 levothyroxine 50 mcg capsule 50 mcg PO QDAY 10/18/21 10/18/21 sertraline 50 mg tablet 50 mg PO QDAY 10/18/21 10/18/21 atorvastatin 10 mg tablet 10 mg PO .Bedtime 10/19/21 10/19/21 calcium citrate 250 mg PO QDAY 10/19/21 10/19/21 cholecalciferol (vitamin D3) 25 25 mcg PO QDAY 10/19/21 10/19/21 mcg (1,000 unit) capsule (Vitamin D3) lisinopril 5 mg tablet 5 mg PO DAILY 10/19/21 10/19/21 metoprolol tartrate 25 mg tablet 25 mg PO QDAY 10/19/21 10/19/21 Allergies Allergy/AdvReac Type Severity Reaction Status Date / Time doxycycline AdvReac Heartburn Verified 10/18/21 09:47 [facility] Medical History Depression ?F32.A - Depression, unspecified (ICD-10) De Quervain's syndrome (tenosynovitis) ?M65.4 - Radial styloid tenosynovitis [de Quervain] (ICD-10) Surgical History De Quervain's tenosynovitis, left (02/17/20) ?M65.4 - Radial styloid tenosynovitis [de Quervain] (ICD-10) Family History Sister Cancer Other Coronary artery disease Dementia Social History Smoking Status: Former smoker What tobacco products do you use: cigarettes Smoking quit date/years: >15 years ago Do you use any of these nicotine containing products: None Second hand tobacco smoke exposure: No How often do you have a drink containing alcohol: monthly or less How many standard drinks containing alcohol do you have on a typical day: 1 or 2 How often do you have six or more drinks on one occasion: Never AUDIT-C Alcohol total score: 1 Non-prescribed substance use: denies use service: No Exam Const: Vital Signs, click to edit/add: Vital Signs - 24 hr 01/29/25 23:39 Temperature 97.5 F L Pulse Rate [Right Pulse Oximeter] 72 Respiratory Rate 16 Blood Pressure [Le ft Upper Arm] 131/82 Pulse Oximetry 99 Oxygen Delivery Me thod Room Air Documenting provider has reviewed patient's vital signs: yes Common normals: no apparent distress General appearance: well kempt HENMT: Common normals: head/scalp atraumatic Head and scalp: atraumatic Other: Typical rosacea inflammation along the cheeks and nasal area. No signs of swelling to the nose. There is a slight amount of tear trough edema of the lower left lid. She reports facial swelling along the jaw line but I do not appreciate anything. The jaw opens and closes normally. Oropharynx with acyanotic lips, moist membranes, no swelling in the oropharynx or tongue. Eye: Common normals: EOMs intact bilaterally and conjunctivae normal General eye: normal appearance of both eyes Conjunctiva: conjunctiva(e) normal Neck & C-Spine: Common normals: full ROM and no lymphadenopathy General: normal visual inspection Resp: Common normals: normal respiratory effort, no use of accessory muscles and clear to auscultation bilaterally Effort & inspection: able to speak in complete sentences Auscultation: clear to auscultation bilaterally Neuro: Common normals: CN's II-XII intact bilaterally Speech: speech normal Psych: Appearance: well kempt Attitude: engaged Activity/motor behavior: appropriate eye contact Insight: insight good Judgement: judgment good Skin: Narrative: Other than the rosacea on the face, no other skin lesions or wounds noted. Course Course ED Course: 74-year-old female with rosacea, worsening in nature with concern for secondary infection. Patient does not have a fever, hypotension, tachycardia or other signs of sepsis. She has no focal neurological deficits. She did just very recently switch antibiotics and we have not had sufficient time to tell if this 1 is going to be successful. The Keflex is an excellent choice and I do support her senior linux administrator decision to try this medication. Counseled patient on these thoughts. What I would recommend that we do is we stay on the Keflex for at least another 24 hours pressure probably 48 hours. If at that point were not starting to notice improvement would recommend to switch to Bactrim. Counseled patient on alarm symptoms like severe swelling of the face, difficulty swallowing, swelling of the airway, high fevers, neurological changes that would all warrant ED re-evaluation. She should continue the topical agent recommended by her senior linux administrator and check in with her senior linux administrator in a couple of days when the office is open again to update on the progress. Prescription given from [facility] just in case she is not noticing improvement over the holiday weekend as we discussed. Alarm symptoms reviewed and written instructions are provided. Vital Signs Vital signs: Initial Vital Signs Temperature 97.5 F L 01/29/25 23:39 Temperature Source Temporal Artery Scan 01/29/25 23:39 Pulse Rate 72 01/29/25 23:39 Respiratory Rate 16 01/29/25 23:39 Blood Pressure 131/82 01/29/25 23:39 Blood Pressure Mean 98 01/29/25 23:39 Blood Pressure Position Sitting 01/29/25 23:39 Pulse Oximetry 99 01/29/25 23:39 Oxygen Delivery Method Room Air 01/29/25 23:39 Vital Signs Temperature 97.5 F L 01/29/25 23:39 Pulse Rate 72 01/29/25 23:39 Respiratory Rate 16 01/29/25 23:39 Blood Pressure 131/82 01/29/25 23:39 Pulse Oximetry 99 01/29/25 23:39 Oxygen Delivery Method Room Air 01/29/25 23:39 Temperature 97.5 F L 01/29/25 23:39 Pulse Rate 72 01/29/25 23:39 Respiratory Rate 16 01/29/25 23:39 Blood Pressure 131/82 01/29/25 23:39 Pulse Oximetry 99 01/29/25 23:39 Oxygen Delivery Method Room Air 01/29/25 23:39 Discharge Plan Discharge Clinical Impression: Rosacea Patient Disposition: Home, Self-Care Condition: Stable Instructions: Cellulitis (ED) Additional Instructions: As we discussed, there are no signs of severe cellulitis today. There is some mild inflammation and swelling around your area of rosacea. This can indicate a secondary bacterial infection. At this point, I think the Keflex is the best choice for treatment for you. You have not been on the medication long enough for us to tell if this is going to be the right medication for you. I would like for you to continue on this medication for another 48 hours. If you are not noticing any changes by that point, I would reconsider switching you to Bactrim. I like the idea of putting only the Bactroban ointment on the skin for now. If you start having high fevers, severe worsening and expansion of the reddened area, any type of swelling inside the mouth or airway, severe headache or other neurological changes, please come back to the emergency room. Otherwise, please update your senior linux administrator if things are not starting to improve in a couple of days for consideration of alternative treatment. Unfortunately, it does take a lot longer for the medications to kick in when treating this condition. Activity Level: No Restrictions Discharge Diet: Regular Prescriptions: No Action fluticasone propionate 50 mcg/actuation spray,suspension 2 spray intranasal QDAY Rx Instructions: administer into each nostril levothyroxine 50 mcg capsule 50 mcg PO QDAY hydrochlorothiazide 25 mg tablet 25 mg PO QDAY sertraline 50 mg tablet 50 mg PO QDAY atorvastatin 10 mg tablet 10 mg PO .Bedtime lisinopril 5 mg tablet 5 mg PO DAILY metoprolol tartrate 25 mg tablet 25 mg PO QDAY cholecalciferol (vitamin D3) [Vitamin D3] 25 mcg (1,000 unit) capsule 25 mcg PO QDAY calcium citrate 250 mg calcium tablet 250 mg PO QDAY Follow Up/Referrals: Mindy Tobin DO [Primary Care Provider, Family Practice] Stand Alone Forms: [facility] Info Instructions
== END 2025-01-30 01:40 | disposition home or self-care (01) ==
PROVIDERS: Emergency Provider Family Medicine; PCP Family Medicine
DX: L71.8 Other rosacea (principal)
CPT/HCPCS: 99283